=== PATIENT | male | born 1995 | race Caucasian/White ===

== ENCOUNTER 2018-01-04 18:53 | Emergency (ER) | payer SELFPAY ==
[~2018-01-04 18:53] MED LIST: Z.0.NO CURRENT MEDS
[2018-01-04 19:06] VITALS: BP 127/78; PULSE 78; RESP 20; TEMP 98.9; O2SAT 98
--- NOTE | 2018-01-04 19:24 | PD ---
HPI Chief Complaint: Oral / Dental Pain or Problem Time Seen by Provider: 19:07 Travel History International Travel<30 days: No Contact w/Intl Traveler<30days: No Traveled to known affect area: No History of Present Illness HPI 22-year-old male presents emergency department for evaluation of right lower jaw pain and swelling that started 2-3 days ago. Says that he has had issues with his wisdom tooth coming in for over the last several months however, the swelling has never been persistent. He has never had green pus coming from the area. Patient says his pain is mild. Says he has been able to express green pus from the area. Says that he has been trying to take care of his teeth by rinsing and flossing however, he has been unsuccessful at getting rid of the swelling. He denies any fevers or chills but says that he has not felt good over the last couple days as he feels that his "equilibrium" has been a little off. This is a history of biliary tree atresia and was advised by his previous providers to avoid medications that are process to the liver. Says he currently does not have a primary care physician. 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) Social History Alcohol Use: Yes ([facility]) Tobacco Use: Yes (2 CIGS DAY) Substance Use: No Allergies-Medications (Allergen,Severity, Reaction): Coded Allergies: acetaminophen (Unverified Allergy, Severe, 05/05/17) penicillin G (Unverified Allergy, Severe, 05/05/17) ALL CILLIANS Sulfa (Sulfonamide Antibiotics) (Unverified Allergy, Intermediate, 05/05/17 ) Uncoded Allergies: GRAPE DYE (Allergy, Severe, 11/12/11) CILLINS (Allergy, Intermediate, 11/13/11) Reported Meds & Prescriptions Reported Meds & Active Scripts Active Reported No Current Meds (Miscellaneous Medication) Misc 0 Review of Systems Except as stated in HPI: all other systems reviewed are Neg Physical Exam Narrative GENERAL: Well-nourished, well-developed patient. SKIN: Focused skin assessment warm/dry. HEAD: Normocephalic. EYES: No scleral icterus. No injection or drainage. Good dentition, no erythema or fluctuance of the gingiva noted. I could not express any fluid from the gingiva as patient described. NECK: Supple, trachea midline. No JVD or lymphadenopathy. CARDIOVASCULAR: Regular rate and rhythm without murmurs, gallops, or rubs. RESPIRATORY: Breath sounds equal bilaterally. No accessory muscle use. MUSCULOSKELETAL: No cyanosis, or edema. BACK: Nontender without obvious deformity. No CVA tenderness. Data Data Last Documented VS Vital Signs Date Time Temp Pulse Resp B/P (MAP) Pulse Ox O2 Delivery O2 Flow Rate FiO2 01/04/18 19:06 98.9 78 20 127/78 (94) 98 Orders Orders Clindamycin Inj (Cleocin Inj) (01/04/18 19:30) [facility] Medical Decision Making Medical Screen Exam Complete: Yes Emergency Medical Condition: Yes Differential Diagnosis Tooth infection, tooth abscess, gingivitis Narrative Course 22-year-old male presents emergency department for evaluation of swelling and pus from his right rear tooth that started several days ago. Patient states he does have a history of swelling but this usually resolves on its own and does not express any pus. Vital signs are stable. Patient will receive clindamycin 600 mg administered in the emergency department today. Patient should start his antibiotics tomorrow morning. He will receive clindamycin as he does have an allergy to the penicillin and sulfa antibiotics. Patient advised to follow-up with the dentist for further evaluation. Advised follow-up with primary care physician as well. Diagnosis Primary Impression: Tooth infection Referrals: [facility]ist Primary Care Physician Additional Instructions: Take all medications as prescribed. You received your first dose of clindamycin today. You should should start your next dose tomorrow morning. You may use salt water gargles and rinses for your mouth. Continue to have good oral hygiene to reduce the possibility of worsening infection. Follow-up with the dentist and your primary care physician. There is swelling may worsen slightly as antibiotics may assist drainage of the pus. However, if the swelling worsens and you develop increasing pain or redness return to the emergency department for further evaluation. Disposition: 01 DISCHARGE HOME Condition: Stable Makeda Ryder Jan 04, 2018 19:24
[2018-01-04] MEDS ORDERED: CLINDAMYCIN PHOS 600 MG/4 ML VIAL IM ONE (19:30)
[2018-01-04] MEDS ORDERED: CLIN300C5 PO (20:08)
== END 2018-01-04 20:13 | disposition home or self-care (01) ==
LOC: PHEFT 18:53
DX: K04.7 Periapical abscess without sinus (principal); F90.9 Attention-deficit hyperactivity disorder, unspecified type; F17.210 Nicotine dependence, cigarettes, uncomplicated
CPT/HCPCS: 96372